=== PATIENT | female | born 1995 | race Caucasian/White ===

== ENCOUNTER 2020-04-13 19:26 | Emergency (ER) | payer OTHER, SELFPAY ==
[2020-04-13 19:56] VITALS: BP 113/67; PULSE 111; RESP 20; TEMP 39.5; O2SAT 98
--- NOTE | 2020-04-13 20:26 | ED.GENADULT ---
HPI - General Adult General Chief complaint: Unspecified Stated complaint: swollen throat Source: patient Mode of arrival: ambulatory Limitations: no limitations History of Present Illness HPI narrative: this is a 24-year-old female presents with some bilateral tonsillar enlargement with erythema tender some been tibial glands bilaterally with fever of 102, was seen at an urgent care approximately 2 days ago and started on amoxicillin and there is currently no relief. There is currently no headache no neck stiffness no shortness of breath no audible wheezing no nausea vomiting or abdominal pain no chest pain. patient had a negative strep at the urgent care on Friday. Onset (ago): day(s) Location: mouth and neck Severity: moderate Severity scale (1-10): 6 Quality: aching Relieving factors: eating and other ( with swallowing) Exacerbating factors: none Associated symptoms: fever/chills Related Data Allergies Allergy/AdvReac Type Severity Reaction Status Date / Time No Known Allergies Allergy Verified 04/13/20 20:05 Review of Systems Review of Systems: All systems reviewed & are unremarkable except as noted in HPI and below PMFSH Past Medical History Medical History Patient denies medical problems Social History Social History Gender identity (if verbalized by the patient): Female Exam Const: General: no acute distress and alert Orientation/consciousness: patient oriented x3 HENMT: Head: normal to inspection Other: bilateral tonsillar enlargement with erythema bilateral submandibular gland swelling with tenderness with palpation Eyes: Conjunctivae: conjunctivae normal Pupils: Equal, round and reactive pupils present Neck: Neck: lymphadenopathy Chest: Chest palpation & inspection: normal inspection of the chest Resp: Effort & Inspection: normal respiratory effort Auscultation: clear to auscultation bilaterally Cardio: Rate: regular rate Rhythm: regular rhythm GI: GI Palp: Yes Soft to palpation : General: Yes no CVA tenderness Skin: General skin exam: normal color Rashes: no rashes Neuro: General: patient oriented x3 and moves all extremities Extrem: General: normal to inspection Psych: Mental Status: mental status grossly normal Course Course Emergency Course: Patient received IM ceftriaxone with oral Orapred, and a g of Tylenol, advised patient to take medicine as prescribed and to follow-up with her primary care doctor if symptoms persist. Vital Signs Vital signs: Vital Signs Temperature 39.5 C H 04/13/20 19:56 Pulse Rate 111 H 04/13/20 19:56 Respiratory Rate 04/13/20 19:56 Blood Pressure 113/67 04/13/20 19:56 Pulse Oximetry 98 04/13/20 19:56 Temperature 39.5 C H 04/13/20 19:56 Pulse Rate 111 H 04/13/20 19:56 Respiratory Rate 04/13/20 19:56 Blood Pressure 113/67 04/13/20 19:56 Pulse Oximetry 98 04/13/20 19:56 Medical Decision Making Vital Signs Vital Signs: Vital Signs Temperature 39.5 C H 04/13/20 19:56 Pulse Rate 111 H 04/13/20 19:56 Respiratory Rate 04/13/20 19:56 Blood Pressure 113/67 04/13/20 19:56 Pulse Oximetry 98 04/13/20 19:56 Temperature 39.5 C H 04/13/20 19:56 Pulse Rate 111 H 04/13/20 19:56 Respiratory Rate 04/13/20 19:56 Blood Pressure 113/67 04/13/20 19:56 Pulse Oximetry 98 04/13/20 19:56 Critical Care Time Critical Care Time Critical Care Time: No Discharge Plan Discharge Clinical Impression: Pharyngitis, acute Qualifiers: Pharyngitis/tonsillitis etiology: other specified organisms Qualified Code(s): J02.8 - Acute pharyngitis due to other specified organisms Patient Disposition: Home, Self-Care Condition: Stable Instructions: Antibiotic Form, Pharyngitis (ED) Additional Instructions: take medicine as prescribed, use Tylenol or Motrin every 6 [email or web address]
[2020-04-13] MEDS: prednisoLONE ORAL SOLN 30 MG/10 ML SOLUTION PO (20:35)
[2020-04-13] MEDS: ACETAMINOPHEN 500 MG TABLET 1000 MG PO (20:35)
[2020-04-13] MEDS: LIDOCAINE HCL 1% LOCAL INJ 20 ML VIAL (20:36)
[2020-04-13] MEDS: cefTRIAXone 1 GM VIAL IM (20:37)
[2020-04-13 20:58] VITALS: PULSE 120; RESP 20; O2SAT 100
== END 2020-04-13 20:58 | disposition home or self-care (01) ==
PROVIDERS: Emergency Provider Emergency Medicine
DX: J02.8 Acute pharyngitis due to other specified organisms (principal)
CPT/HCPCS: 96372; 99283; A9270; J0696